=== PATIENT | female | born 1950 | race Caucasian/White ===

== ENCOUNTER → 2018-04-24 | Outpatient (CLI) | payer BC ==
--- NOTE | 2018-04-24 12:23 | DIAGNOSTIC IMAGING REPORT ---
R HAND MIN 3 VIEWS ROUTINE CLINICAL HISTORY: M35.9 U RIGHT HAND PAIN COMPARISON: None. DISCUSSION: The bones are osteopenic. No fractures or dislocations are visualized. There are minor degenerative changes. There is no erosive disease. IMPRESSION: 1. No acute fractures 2. Osteopenia 3. No evidence of erosive disease Electronically signed by: Rehan Okeefe M.D. 04/24/2018 12:22 PM Dictated Date/Time: 04/24/2018 12:21 PM
--- NOTE | 2018-04-24 12:24 | DIAGNOSTIC IMAGING REPORT ---
THORACIC SPINE 3 VIEWS ROUTINE CLINICAL HISTORY: M54.6 back pain COMPARISON STUDY: No previous studies for comparison. FINDINGS: The paraspinal line is not significantly displaced. There are multilevel degenerative changes present. No acute fractures or subluxations are visualized. No destructive lesions are visualized on conventional radiographic evaluation. IMPRESSION: Moderate multilevel degenerative change. No fractures identified Electronically signed by: Rehan Okeefe M.D. 04/24/2018 12:23 PM Dictated Date/Time: 04/24/2018 12:22 PM
--- NOTE | 2018-04-24 12:25 | DIAGNOSTIC IMAGING REPORT ---
L HAND MIN 3 VIEWS ROUTINE CLINICAL HISTORY: Hand pain. COMPARISON: None FINDINGS: Alignment of the left hand is anatomic. No fracture or suspicious osseous lesion is identified. No erosions are identified. There is mild joint space narrowing and osteophytosis within several interphalangeal joints. IMPRESSION: 1. No acute fracture. 2. 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 3. No radiographic evidence of an erosive/inflammatory arthropathy. Electronically signed by: Lenin Sweeney M.D. 04/24/2018 12:24 PM Dictated Date/Time: 04/24/2018 12:23 PM
== END | disposition home or self-care (01) ==
LOC: C.RAD1850 10:53
PROVIDERS: ATTEND Internal Medicine Rheumatology
DX: R68.2 Dry mouth, unspecified (principal); K21.9 Gastro-esophageal reflux disease without esophagitis; M35.9 Systemic involvement of connective tissue, unspecified; R76.8 Other specified abnormal immunological findings in serum; M54.6 Pain in thoracic spine; M85.841 Other specified disorders of bone density and structure, right hand; M47.814 Spondylosis without myelopathy or radiculopathy, thoracic region